=== PATIENT | male | born 1955 | race Caucasian/White ===

== ENCOUNTER 2020-02-18 02:10 | Emergency (ER) | payer OTHER ==
[2020-02-18] MEDS ORDERED: KETOROLAC 30 MG/ML VIAL ONE (03:49)
[2020-02-18] MEDS ORDERED: HYDROcodone/APAP 5/325 MG 1 TAB TAB ONE (05:16)
== END 2020-02-18 06:03 | disposition home or self-care (01) ==
LOC: MED 02:10
DX: S70.01XA Contusion of right hip, initial encounter (principal); Z93.0 Tracheostomy status; Z93.1 Gastrostomy status; W05.0XXA Fall from non-moving wheelchair, initial encounter; Y93.89 Activity, other specified; Y92.89 Other specified places as the place of occurrence of the external cause; Y99.8 Other external cause status
CPT/HCPCS: 73502; 99283; J1885; Q0092